=== PATIENT | female | born 1995 | race Caucasian/White ===

== ENCOUNTER → 2020-12-04 12:41 | Outpatient (CLI) | payer OTHER, SELFPAY ==
[2020-12-04 13:36] LABS: HCG Quantitative /Beta subunit 12236 mIU/mL
== END ==
PROVIDERS: PCP Nurse Practitioner Family; Referring Provider Family Medicine; Visit Provider Family Medicine
DX: Z34.90 Encounter for supervision of normal pregnancy, unspecified, unspecified trimester (principal)
CPT/HCPCS: 36415; 84702

== ENCOUNTER → 2020-12-06 11:47 | Outpatient (CLI) | payer OTHER, SELFPAY ==
[2020-12-06 15:19] LABS: HCG Quantitative /Beta subunit 10998 mIU/mL
== END ==
PROVIDERS: PCP Nurse Practitioner Family; Referring Provider Family Medicine; Visit Provider Family Medicine
DX: Z34.90 Encounter for supervision of normal pregnancy, unspecified, unspecified trimester (principal)
CPT/HCPCS: 36415; 84702

== ENCOUNTER 2020-12-06 18:45 | Emergency (ER) | payer OTHER, SELFPAY ==
[2020-12-06 19:20] VITALS: BP 140/88; PULSE 128; RESP 24; TEMP 36.2; O2SAT 99; BMI 38.2
--- NOTE | 2020-12-06 19:30 | DI.US.S_ITS ---
PROCEDURE: US PELVIC COMPLETE INDICATIONS: VAGINAL BLEEDING AND CRAMPING. Positive beta HCG. TECHNIQUE: Real-time scanning was performed of the pelvic organs, with image documentation. Additional endovaginal scanning was necessary due to incomplete visualization of the adnexal and endometrial structures by transabdominal scanning. COMPARISON: None. FINDINGS: Uterus: Uterus is normal in size at 8.7 x 4.8 x 4.2 cm. The endometrium measures 18.9 mm in combined thickness. Endometrium is heterogeneous. No gas station no sac or pole. Ovaries: Not visualized. Septations in the left adnexa. Other: Trace amount of pelvic fluid, likely within physiological limits. IMPRESSION: 1. Thickened endometrium measuring 18.9 mm. No gestation sac or pole. 2. Ovaries are not visualized. There are septations in the left adnexa. If clinically indicated, follow-up ultrasound is recommended. Dictated by: Reji Forrester M.D. on 12/06/2020 at 21:24 Approved by: Reji Forrester M.D. on 12/06/2020 at 21:28
--- NOTE | 2020-12-06 19:39 | ED_ITS ---
HPI - General Chief complaint: Vaginal Bleeding Stated complaint: 9 Wks Preg, Poss Miscarrige Time Seen by Provider: 12/06/20 19:13 Source: patient Mode of arrival: Ambulatory Limitations: no limitations History of Present Illness HPI Narrative: 25-year-old female at 9 weeks presents with a chief comp laint of cramping and heavy vaginal bleeding over the course of the day. She is not dizzy nor weak or lightheaded. She has had no fever or chills. Her OB has been following her with ultrasound and HCG has been trending down. She is here for evaluation of a likely miscarriage. She has been bleeding heavily, at times saturating a pad per hour and passing clots. There is no obvious tissue past Related Data Home Medications Medication Instructions Recorded Confirmed albuterol sulfate 90 mcg/actuation 1 inh INHALATION Q4-6H PRN 12/03/20 12/03/20 breath activated powder inhaler,sensor prenat.vits,mina,[id number] 1 tab PO DAILY 12/03/20 12/03/20 Allergies Allergy/AdvReac Type Severity Reaction Status Date / Time No Known Drug Allergies Allergy Verified 12/03/20 12:06 Review of Systems Review of Systems Narrative: GENERAL: See HPI. HEENT: Denies sinus pain, ear pain, sore throat, difficulty swallowing, dizziness. RESPIRATORY: Denies dyspnea, cough, wheezing, hemoptysis, sputum. CARDIOVASCULAR: Denies chest pain, palpitations, orthopnea, edema, GASTROINTESTINAL: Denies nausea, vomiting, abdominal pain, diarrhea, constipation, melena. : See HPI MUSCULOSKELETAL: denies weakness, joint pain, or bony pain SKIN: Denies rash, skin lesions, or other NEUROLOGIC: Denies weakness, headache, numbness, change in speech, confusion, seizures, incoordination. PSYCHIATRIC: No concerning psychosocial issues. 12 point review of systems is negative except for those stated above Exam Narrative Exam Narrative: GENERAL: [25] year old patient appears stated age. Well- developed patient, in mild distress. Tearful, sad HEAD: Atraumatic. Normocephalic. EYES: Pupils equal round and reactive. Extraocular motions intact. No scleral icterus. No injection or drainage. ENT: Nose without bleeding, purulent drainage. Throat without erythema, tonsillar hypertrophy or exudate. Airway patent. NECK: Trachea midline. Non tender CARDIOVASCULAR: Tachycardic but regular rhythm without murmurs, gallops, or rubs. RESPIRATORY: Clear to auscultation. Breath sounds equal bilaterally. No wheezes, rales, or rhonchi. GASTROINTESTINAL: Abdomen soft, non-tender, nondistended. : Moderate dark red blood from cervical os, no clots or tissue noted, laceration. Pelvic exam performed with patient's permission and female nursing power plant operators supervisor at the bedside EXTREMITIES: No edema or joint tenderness. BACK: Nontender without deformity or crepitance. No flank tenderness. NEURO: AOx3. SKIN: No rash or erythema of visible areas Initial Vital Signs Initial Vital Signs: Vital Signs Temperature 97.1 F L 12/06/20 19:20 Pulse Rate 128 H 12/06/20 19:20 Respiratory Rate 24 12/06/20 19:20 Blood Pressure 140/88 12/06/20 19:20 Pulse Oximetry 99 12/06/20 19:20 Course Course Course Narrative: Upon completion of physical exam I have was in contact with on-call crew manager, I have related to her the history and physical exam, as well as ultrasound findings. After our discussion patient would prefer to get a D&C a possible. Dr. Fuentes will see the patient at the bedside, please see her note for details of the visit. Orders Ordered: ED Orders 12/06/20 19:30 US pelvic complete Stat 12/06/20 19:35 Complete Blood Count AUTO DIFF Stat Comprehensive Metabolic Panel Stat HCG Quantitative /Beta subunit Stat Type and Screen Stat 12/06/20 20:30 COVID19 -Nasal swab/Pre-Proc Stat Discontinued Medications Misoprostol (Misoprostol 200 Mcg Tablet) 800 mcg VAG NOW ONE Stop: 12/06/20 22:22 Last Admin: 12/06/20 22:34 Dose: 800 mcg Documented by: AIYANA Morphine Sulfate (Morphine 2 Mg/Ml Inj) 2 mg IV NOW ONE Stop: 12/06/20 19:31 Last Admin: 12/06/20 19:44 Dose: 2 mg Documented by: MARIA DE JESUS Ondansetron HCl (Ondansetron 4 Mg/2 Ml Inj) 4 mg IV NOW ONE Stop: 12/06/20 19:31 Last Admin: 12/06/20 19:44 Dose: 4 mg Documented by: MARIA DE JESUS Consultations Consultation #1: Per Dr. fellows visit with patient they have elected not to perform D&C and will instead use Cytotec Vital Signs Vital signs: Vital Signs - 8 hr 12/06/20 19:20 12/06/20 19:49 12/06/20 20:00 Temperature 97.1 F L Pulse Rate 128 H 97 H 98 H Respiratory Rate 24 Blood Pressure 140/88 132/77 121/68 Pulse Oximetry 99 97 97 12/06/20 20:30 12/06/20 21:00 12/06/20 22:22 Temperature 98.7 F Pulse Rate 108 H 100 H 98 H Respiratory Rate Blood Pressure 115/66 Pulse Oximetry 97 98 96 MDM - OB/Uterine Contractions Lab Data Result diagrams: 12/06/20 19:35 12/06/20 19:35 Labs: Lab Results 12/06/20 12/06/20 12/06/20 Range/Units 19:35 19:35 19:35 WBC 10.3 (4.5-11.0) X10^3/uL RBC 4.78 (4.0-5.2) X10^6/uL Hgb 13.9 (12.0-16.0) g/dL Hct 40.9 (36-46) % MCV 85.4 (80-100) fL MCH 29.1 (26-34) PG MCHC 34.0 (30-36) % RDW 13.5 (11.6-14.8) % Plt Count 204 (150-400) X10^3/uL Neut % (Auto) 60.7 (50-75) % Lymph % (Auto) 29.5 (25-40) % [place] % (Auto) 6.1 (3-14) % Eos % (Auto) 2.8 (2-4) % Baso % (Auto) 0.9 (0-2) % Neut # (Auto) 6300 (8866-9780) /uL Lymph # (Auto) 3000 (4710-8637) /uL [place] # (Auto) 600 (0-900) /uL Eos # (Auto) 300 (0-450) /uL Baso # (Auto) 100 (0-100) /uL Sodium 138 (137-145) mmol/L Potassium 3.7 (3.4-5.1) mmol/L Chloride 102 (98-107) mmol/L Carbon Dioxide 27 (22-32) mmol/L BUN 11 (7-17) mg/dL Creatinine 0.58 (0.52-1.04) mg/dL Estimated GFR > 60.0 (>60) mL/min BUN/Creatinine Ratio 19.0 (6-22) Glucose 140 H (70-100) mg/dL Calcium 9.5 (8.4-10.2) mg/dL Total Bilirubin 0.3 (0.2-1.3) mg/dL AST 27 (14-36) IU/L ALT 33 (<35) IU/L Alkaline Phosphatase 60 (38-126) U/L Total Protein 7.6 (6.3-8.2) g/dL Albumin 4.3 (3.5-5.0) g/dL Globulin 3.3 (1.7-4.1) g/dL Albumin/Globulin Ratio 1.3 (1.0-2.8) HCG, Quant 9127.1 mIU/mL SARS-CoV-2 (PCR) (Negative) Blood Type O Positive Antibody Screen Negative 12/06/20 Range/Units 20:30 WBC (4.5-11.0) X10^3/uL RBC (4.0-5.2) X10^6/uL Hgb (12.0-16.0) g/dL Hct (36-46) % MCV (80-100) fL MCH (26-34) PG MCHC (30-36) % RDW (11.6-14.8) % Plt Count (150-400) X10^3/uL Neut % (Auto) (50-75) % Lymph % (Auto) (25-40) % [place] % (Auto) (3-14) % Eos % (Auto) (2-4) % Baso % (Auto) (0-2) % Neut # (Auto) (9898-6055) /uL Lymph # (Auto) (7999-1465) /uL [place] # (Auto) (0-900) /uL Eos # (Auto) (0-450) /uL Baso # (Auto) (0-100) /uL Sodium (137-145) mmol/L Potassium (3.4-5.1) mmol/L Chloride (98-107) mmol/L Carbon Dioxide (22-32) mmol/L BUN (7-17) mg/dL Creatinine (0.52-1.04) mg/dL Estimated GFR (>60) mL/min BUN/Creatinine Ratio (6-22) Glucose (70-100) mg/dL Calcium (8.4-10.2) mg/dL Total Bilirubin (0.2-1.3) mg/dL AST (14-36) IU/L ALT (<35) IU/L Alkaline Phosphatase (38-126) U/L Total Protein (6.3-8.2) g/dL Albumin (3.5-5.0) g/dL Globulin (1.7-4.1) g/dL Albumin/Globulin Ratio (1.0-2.8) HCG, Quant mIU/mL SARS-CoV-2 (PCR) Negative (Negative) Blood Type Antibody Screen Imaging Data US - [employer]: Radiologist's Impression: Dina Judge 25 F [address] [id number] ReportSigned Patient: Dina Judge MMR#: [id number]: 1995Acct:[id number]/Sex: 25 / FDate of Service: 12/06/20Loc: EDAccession Number: [id number] Procedure: US pelvic complete Ordering Provider: Tommy Iraheta D.O. PROCEDURE: US PELVIC COMPLETE INDICATIONS: VAGINAL BLEEDING AND CRAMPING. Positive beta HCG. TECHNIQUE: Real-time scanning was performed of the pelvic organs, with image documentation. Additional endovaginal scanning was necessary due to incomplete visualization of the adnexal and endometrial structures by transabdominal scanning. COMPARISON: None. FINDINGS: Uterus: Uterus is normal in size at 8.7 x 4.8 x 4.2 cm. The endometrium me asures 18.9 mm in combined thickness. Endometrium is heterogeneous. No gas station no sac or pole. Ovaries: Not visualized. Septations in the left adnexa. Other: Trace amount of pelvic fluid, likely within physiological limits. IMPRESSION: 1. Thickened endometrium measuring 18.9 mm. No gestation sac or pole. 2. Ovaries are not visualized. There are septations in the left adnexa. If clinically indicated, follow-up ultrasound is recommended. Dictated by: Reji Forrester M.D. on 12/06/2020 at 21:24 Approved by: Reji Forrester M.D. on 12/06/2020 at 21:28 MDM Narrative Medical decision making narrative: Patient with stable vitals and H&H. Likely a near complete miscarriage. After discussion with Ob patient will take Cytotec at home and follow closely. Return precautions have been given and questions answered to her apparent satisfaction Discharge Plan Departure Patient Disposition: Home Clinical Impression: Incomplete miscarriage Instructions: DI for Miscarriage Activity Restrictions/Additional Instructions: *You have been diagnosed with [ Near complete miscarriage.] *What to do: *Please take Cytotec vaginally as discussed with Dr. Green *Please follow up with your OB provider in 2-3 days, call for an appointment. Let them know you were seen in the Emergency Department and that we ask that you be seen in follow up. We will electronically transmit a record of today's note if your PCP is in our system *Return to Emergency Department if you should have any new, worsening or concerning symptoms, such as [fever greater than 101 F, shaking chills, worsening pain, persistent vomiting or other bothersome symptoms] Prescriptions: No Action prenat.vits,mina,[id number]-[id number] Tablet 1 tab PO DAILY RF: 0 albuterol sulfate 90 mcg/actuation aero powdr breath act w/sensor 1 inh inhalation Q4-6H PRNRF: 0 Referrals: Kaycee Green MD [Physician] - Anna Pelaez ARNP [Primary Care Provider] -
[2020-12-06] MEDS: MORPHINE 2 MG/ML INJ IV (19:44)
[2020-12-06] MEDS: ONDANSETRON 4 MG/2 ML INJ IV (19:44)
[2020-12-06 19:49] VITALS: BP 132/77; PULSE 97; O2SAT 97
[2020-12-06 19:56] LABS: Add Manual Diff / Slide Review NO; Basophils Absolute Auto 100 /uL (0-100); Basophils Percent Auto 0.9 % (0-2); Eosinophils Absolute Auto 300 /uL (0-450); Eosinophils Percent Auto 2.8 % (2-4); Hematocrit 40.9 % (36-46); Hemoglobin 13.9 g/dL (12.0-16.0); Lymphocytes Absolute Auto 3000 /uL (1100-4500); Lymphocytes Percent Auto 29.5 % (25-40); Mean Corpuscular Hemoglobin 29.1 PG (26-34); Mean Corpuscular Volume 85.4 fL (80-100); Monocytes Absolute Auto 600 /uL (0-900); Monocytes Percent Auto 6.1 % (3-14); Neutrophils Absolute Auto 6300 /uL (1500-7000); Neutrophils Percent Auto 60.7 % (50-75); Platelet Count 204 X10^3/uL (150-400); Red Blood Cell Count 4.78 X10^6/uL (4.0-5.2); Red Cell Distribution Width 13.5 % (11.6-14.8); White Blood Cell Count 10.3 X10^3/uL (4.5-11.0)
[2020-12-06 20:00] VITALS: BP 121/68; PULSE 98; O2SAT 97
[2020-12-06 20:05] LABS: Alanine Aminotransferase 33 IU/L (<35); Albumin 4.3 g/dL (3.5-5.0); Albumin Globulin Ratio 1.3 (1.0-2.8); Alkaline Phosphatase 60 U/L (38-126); Aspartate Aminotransferase 27 IU/L (14-36); Bilirubin Total 0.3 mg/dL (0.2-1.3); Blood Urea Nitrogen 11 mg/dL (7-17); Calcium 9.5 mg/dL (8.4-10.2); Carbon Dioxide 27 mmol/L (22-32); Chloride 102 mmol/L (98-107); Estimated Glomerular Filt Rate > 60.0 mL/min (>60); Globulin 3.3 g/dL (1.7-4.1); Glucose 140 mg/dL (70-100); HEMOLYSIS < 15 (0-50); Potassium 3.7 mmol/L (3.4-5.1); Sodium 138 mmol/L (137-145); Total Protein 7.6 g/dL (6.3-8.2)
[2020-12-06 20:21] LABS: HCG Quantitative /Beta subunit 9127.1 mIU/mL
[2020-12-06 20:30] VITALS: PULSE 108; O2SAT 97
[2020-12-06 21:00] VITALS: PULSE 100; O2SAT 98
[2020-12-06 21:15] LABS: COVID19 -Nasal RAPID Negative (Negative)
--- NOTE | 2020-12-06 22:09 | PM.GYNHP.1 ---
History of Present Illness History of Present Illness Reason for admission: vaginal bleeding Narrative: Dina Judge is a 25 year old @9 weeks by certain LMP with a desired and regular menses, 6+2 by TVUS on 12/04, presenting with a miscarriage in progress. The patient reports that this was a planned with known dating, but that her new OB visit as an outpatient, an intrauterine pole was visualized with no FHR. Serial HCGs that day and today showed a decreasing HCG, and the patient reports that at 5:30 PM, she began having severe cramping and passing large clots. The pain and bleeding have decreased somewhat, though her bleeding is now consistent with a heavy period. A TVUS in the emergency department shows a thickened endometrium but no definite POCs. The patient denies fevers, chills, nausea, vomiting, BELL, anemia symptoms, or any other symptoms. 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 She denies any contributory social history, and is accompanied by her supportive spouse. [facility] Medical History Anxiety Asthma Back pain Bronchitis Depression Frequent headaches Heat rash Hormone imbalance Obesity Tongue tied Surgical History H/O tooth extraction Family History Father Drug addict Acute alcohol abuse Family estrangement Nephrotic syndrome Mother PCOS (polycystic ovarian syndrome) Depression Anxiety Grandfather Family estrangement Grandmother Family estrangement Grandfather History of prediabetes Obesity Grandmother Gestational diabetes Anemia Seizures Depression Anxiety Sister Anemia induced hypertension Sister No problems noted. Brother No problems noted. Brother No problems noted. Family/Other Crohn's disease Social History marital status: number of children: 0 household members: spouse lives independently: Yes pets and animals: Yes (X 2 dogs) education level: college (X 2 year Degree, some classses towards BA (Organizational Leadership)) occupational status: employed ([employer] : works from home most days) current occupational exposures/hazards: No angelica/orthodoxy: Buddhist special angelica needs: No Smoking Status: Never smoker second hand exposure: No alcohol intake: former (pre- : very rare) substance use type: does not use Type(s) of exercise: occasional exercise (H/O : walking and swimming ) Meds Home Medications and Allergies Home Medications Medication Instructions Recorded Confirmed Type albuterol sulfate 90 mcg/actuation 1 inh INHALATION Q4-6H PRN 12/03/20 12/03/20 History breath activated powder inhaler,sensor prenat.vits,mina,[id number] 1 tab PO DAILY 12/03/20 12/03/20 History Allergies Allergy/AdvReac Type Severity Reaction Status Date / Time No Known Drug Allergies Allergy Verified 12/03/20 12:06 Review of Systems Constitutional Constitutional: Reports as per HPI Cardiovascular Cardiovascular: Reports system reviewed and no additional complaints, except as documented Respiratory Respiratory: Reports system reviewed and no additional complaints, except as documented Gastrointestinal Gastrointestinal: Reports as per HPI Genitourinary Genitourinary: Reports as per HPI Exam Vital Signs (past 8 hours): - 12/06/20 19:20 12/06/20 19:49 12/06/20 20:00 Temperature 97.1 F L Pulse Rate 128 H 97 H 98 H Respiratory Rate 24 Blood Pressure 140/88 132/77 121/68 Pulse Oximetry 99 97 97 12/06/20 20:30 12/06/20 21:00 Temperature Pulse Rate 108 H 100 H Respiratory Rate Blood Pressure Pulse Oximetry 97 98 Oxygen Delivery Method Room Air Const General: cooperative, comfortable and in distress (appropriately distressed) Orientation: alert, awake and oriented x3 GI Palpation: soft and tender (mild fundal tenderness) External Female Exam: normal external appearance Speculum Exam - Vagina: no lacerations, no lesions and vaginal bleeding Speculum Exam - Cervix: cervical os open OB/External & Speculum: cervical os open and vaginal bleeding Other: 1 scopette dark red blood cleared with slow ongoing bleeding from open appearing cervical os. Bimanual exam deferred due to limited utility due to body habitus vs. increased risk of infection. Objective Labs Result Diagrams: 12/06/20 19:35 12/06/20 19:35 Labs: Laboratory Results - last 24 hr 12/06/20 12/06/20 12/06/20 19:35 19:35 19:35 WBC 10.3 RBC 4.78 Hgb 13.9 Hct 40.9 MCV 85.4 MCH 29.1 MCHC 34.0 RDW 13.5 Plt Count 204 Neut % (Auto) 60.7 Lymph % (Auto) 29.5 [place] % (Auto) 6.1 Eos % (Auto) 2.8 Baso % (Auto) 0.9 Neut # (Auto) 6300 Lymph # (Auto) 3000 [place] # (Auto) 600 Eos # (Auto) 300 Baso # (Auto) 100 Sodium 138 Potassium 3.7 Chloride 102 Carbon Dioxide 27 BUN 11 Creatinine 0.58 Estimated GFR > 60.0 BUN/Creatinine Ratio 19.0 Glucose 140 H Calcium 9.5 Total Bilirubin 0.3 AST 27 ALT 33 Alkaline Phosphatase 60 Total Protein 7.6 Albumin 4.3 Globulin 3.3 Albumin/Globulin Ratio 1.3 HCG, Quant 9127.1 SARS-CoV-2 (PCR) Blood Type O Positive Antibody Screen Negative 12/06/20 20:30 WBC RBC Hgb Hct MCV MCH MCHC RDW Plt Count Neut % (Auto) Lymph % (Auto) [place] % (Auto) Eos % (Auto) Baso % (Auto) Neut # (Auto) Lymph # (Auto) [place] # (Auto) Eos # (Auto) Baso # (Auto) Sodium Potassium Chloride Carbon Dioxide BUN Creatinine Estimated GFR BUN/Creatinine Ratio Glucose Calcium Total Bilirubin AST ALT Alkaline Phosphatase Total Protein Albumin Globulin Albumin/Globulin Ratio HCG, Quant SARS-CoV-2 (PCR) Negative Blood Type Antibody Screen
[2020-12-06 22:22] VITALS: BP 115/66; PULSE 98; TEMP 37.1; O2SAT 96
--- NOTE | 2020-12-06 22:31 | PM.CN ---
History of Present Illness Consult details Date Patient Seen: 12/06/20 Time Patient Seen: 22:00 Chief complaint: 9 Wks Preg, Poss Miscarrige Reason for consult: complete Requesting provider: Tommy Iraheta Narrative: Dina Judge is a 25 year old @9 weeks by certain LMP with a desired and regular menses, 6+2 by TVUS on 12/04, presenting with a miscarriage in progress. The patient reports that this was a planned with known dating, but that her new OB visit as an outpatient, an intrauterine pole was visualized with no FHR. Serial HCGs that day and today showed a decreasing HCG, and the patient reports that at 5:30 PM, she began having severe cramping and passing large clots. The pain and bleeding have decreased somewhat, though her bleeding is now consistent with a heavy period. A TVUS in the emergency department shows a thickened endometrium but no definite POCs. The patient denies fevers, chills, nausea, vomiting, BELL, anemia symptoms, or any other symptoms. 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 She denies any contributory social history, and is accompanied by her supportive spouse. Meds Home Medications and Allergies Home Medications Medication Instructions Recorded Confirmed Type albuterol sulfate 90 mcg/actuation 1 inh INHALATION Q4-6H PRN 12/03/20 12/03/20 History breath activated powder inhaler,sensor prenat.vits,mina,[id number] 1 tab PO DAILY 12/03/20 12/03/20 History Allergies Allergy/AdvReac Type Severity Reaction Status Date / Time No Known Drug Allergies Allergy Verified 12/03/20 12:06 Review of Systems Constitutional Constitutional: Reports system reviewed and no additional complaints, except as documented Cardiovascular Cardiovascular: Reports system reviewed and no additional complaints, except as documented Respiratory Respiratory: Reports system reviewed and no additional complaints, except as documented Gastrointestinal Gastrointestinal: Reports as per HPI Genitourinary Genitourinary: Reports as per HPI Musculoskeletal Musculoskeletal: Reports system reviewed and no additional complaints, except as documented Neurologic Neurologic: Reports system reviewed and no additional complaints, except as documented Exam Vital Signs (past 8 hours): - 12/06/20 19:20 12/06/20 19:49 12/06/20 20:00 Temperature 97.1 F L Pulse Rate 128 H 97 H 98 H Respiratory Rate 24 Blood Pressure 140/88 132/77 121/68 Pulse Oximetry 99 97 97 12/06/20 20:30 12/06/20 21:00 12/06/20 22:22 Temperature 98.7 F Pulse Rate 108 H 100 H 98 H Respiratory Rate Blood Pressure 115/66 Pulse Oximetry 97 98 96 Oxygen Delivery Method Room Air Const General: cooperative, healthy appearing, well groomed and in distress (appropriately saddened, accompanied by spouse) GI Palpation: soft and tender (mild, suprapubic) External Female Exam: normal external appearance Speculum Exam - Vagina: normal appearance of the vagina, not erythematous, no foreign bodies, no lesions and vaginal bleeding Speculum Exam - Cervix: cervical os open (5mm) OB/External & Speculum: no foreign bodies, cervical os open (5mm) and vaginal bleeding Other: On sterile speculum exam, scant ongoing old dark blood from os. 1 scopette old blood cleared from vaginal vault, no tissue visualized. Given US and rest of exam, bimanual exam deferred as limited utility due to body habitus and concern for increased risk of infection. Objective Labs Result Diagrams: 12/06/20 19:35 12/06/20 19:35 Labs: Laboratory Results - last 24 hr 12/06/20 12/06/20 12/06/20 19:35 19:35 19:35 WBC 10.3 RBC 4.78 Hgb 13.9 Hct 40.9 MCV 85.4 MCH 29.1 MCHC 34.0 RDW 13.5 Plt Count 204 Neut % (Auto) 60.7 Lymph % (Auto) 29.5 [place] % (Auto) 6.1 Eos % (Auto) 2.8 Baso % (Auto) 0.9 Neut # (Auto) 6300 Lymph # (Auto) 3000 [place] # (Auto) 600 Eos # (Auto) 300 Baso # (Auto) 100 Sodium 138 Potassium 3.7 Chloride 102 Carbon Dioxide 27 BUN 11 Creatinine 0.58 Estimated GFR > 60.0 BUN/Creatinine Ratio 19.0 Glucose 140 H Calcium 9.5 Total Bilirubin 0.3 AST 27 ALT 33 Alkaline Phosphatase 60 Total Protein 7.6 Albumin 4.3 Globulin 3.3 Albumin/Globulin Ratio 1.3 HCG, Quant 9127.1 SARS-CoV-2 (PCR) Blood Type O Positive Antibody Screen Negative 12/06/20 20:30 WBC RBC Hgb Hct MCV MCH MCHC RDW Plt Count Neut % (Auto) Lymph % (Auto) [place] % (Auto) Eos % (Auto) Baso % (Auto) Neut # (Auto) Lymph # (Auto) [place] # (Auto) Eos # (Auto) Baso # (Auto) Sodium Potassium Chloride Carbon Dioxide BUN Creatinine Estimated GFR BUN/Creatinine Ratio Glucose Calcium Total Bilirubin AST ALT Alkaline Phosphatase Total Protein Albumin Globulin Albumin/Globulin Ratio HCG, Quant SARS-CoV-2 (PCR) Negative Blood Type Antibody Screen Assessment & Plan Assessment and plan (1) Incomplete miscarriage: Problem details: This patient presents to the Emergency Department for what appears to now be a nearly complete miscarriage. The patient passed several large clots with severe cramping, and though she continues to have moderate bleeding and cramping, her symptoms have significantly improved. I discussed the significance of her improved symptoms and the ultrasound findings with the patient and her spouse. We discussed the options of dilation and curettage, medical management with misoprostol, and expectant management. We discussed that based on her ultrasound, the bulk of the products of conception appear to have passed, and that she could expect ongoing bleeding and cramping tapering off for the next 2-3 weeks. We discussed that 800mcg misoprostol induces cramping of the uterus that encourages passage of remaining POCs and clot, and that she can expect heavy cramping and heavier bleeding for approximately 12 hours after the dose is administered with a small chance of still needing a dilation and curettage for retained products of conception. We discussed that a dilation and curettage more definitively removes the products of conception, but that risks of the procedure are infection, hemorrhage, uterine perforation with damage to surrounding organs, and a small risk of Asherman's syndrome. We discussed that a D&C would not cause bleeding to cease, and that she would still have approximately 2 weeks of decreasing bleeding, though likely rehab director occupational therapist than with the other two options. The patient vocalized understanding of all of the above, and after discussion with her spouse, opted to proceed with 800mcg vaginal misoprostol. We discussed precautions including return to the Emergency Department if soaking more than 2 pads/hour for two hours, infection precautions, and acute blood loss anemia precautions. We discussed the possible need for a repeat dose, and the importance of close outpatient followup within the week. The patient was encouraged to call with any questions or symptoms at any time, or to return to the Emergency Department if necessary. Status: Acute
[2020-12-06] MEDS: miSOPROStoL 200 MCG TABLET 800 MCG VAG (22:34)
== END 2020-12-06 23:03 | disposition home or self-care (01) ==
PROVIDERS: Emergency Provider Emergency Medicine; PCP Nurse Practitioner Family
DX: O03.4 Incomplete spontaneous abortion without complication (principal); Z20.822 Contact with and (suspected) exposure to COVID-19
CPT/HCPCS: 36415; 76830; 76856; 80053; 84702; 85025; 86850; 86900; 86901; 87635; 96374; 96375; 99284; C9803; J2270; J2405; S0191

== ENCOUNTER → 2020-12-13 13:34 | Outpatient (CLI) | payer OTHER, SELFPAY ==
[2020-12-13 15:06] LABS: HCG Quantitative /Beta subunit 176.8 mIU/mL
== END ==
PROVIDERS: PCP Nurse Practitioner Family; Referring Provider Family Medicine; Visit Provider Family Medicine
DX: Z34.90 Encounter for supervision of normal pregnancy, unspecified, unspecified trimester (principal)
CPT/HCPCS: 36415; 84702

== ENCOUNTER → 2020-12-27 16:03 | Outpatient (CLI) | payer OTHER, SELFPAY ==
[2020-12-27 17:55] LABS: Hemoglobin A1C% w Est Avg Glu 5.1 % (4.0-6.0)
[2020-12-27 18:19] LABS: HCG Quantitative /Beta subunit < 2.4 mIU/mL
== END ==
PROVIDERS: PCP Nurse Practitioner Family; Referring Provider Family Medicine; Visit Provider Family Medicine
DX: O03.4 Incomplete spontaneous abortion without complication (principal)
CPT/HCPCS: 36415; 83036; 84702

== ENCOUNTER → 2021-02-09 09:08 | Outpatient (CLI) | payer OTHER, SELFPAY ==
[2021-02-09 11:20] LABS: TSH w/ Reflex to FT4 2.86 uIU/mL (0.47-4.68)
[2021-02-09 12:54] LABS: Estradiol, Total 36.6 pg/mL
[2021-02-14 07:33] LABS: Percent Free Testosterone 3.07 % (0.50-2.80); Testosterone Free 1.06 ng/dL (0.10-0.85); Testosterone Total 34.4 ng/dL (10.0-55.0)
[2021-02-14 19:20] LABS: Estrogen 182 pg/mL (.)
== END ==
PROVIDERS: Referring Provider Family Medicine; Visit Provider Family Medicine
DX: E28.2 Polycystic ovarian syndrome (principal)
CPT/HCPCS: 36415; 82670; 82672; 83525; 84402; 84403; 84443

== ENCOUNTER → 2021-06-25 15:24 | Outpatient (CLI) | payer OTHER, SELFPAY ==
[2021-06-25 16:28] LABS: Hemoglobin A1C% w Est Avg Glu 5.2 % (4.0-6.0)
[2021-06-26 07:36] LABS: Insulin Level Total 70.8 uIU/mL (2.6-24.9)
[2021-06-28 14:48] LABS: Testosterone Free 1.79
[2021-06-28 15:25] LABS: Percent Free Testosterone 3.39 % (0.50-2.80); Testosterone Total 52.8 ng/dL (10.0-55.0)
== END ==
PROVIDERS: PCP Family Medicine; Referring Provider Family Medicine; Visit Provider Family Medicine
DX: E28.2 Polycystic ovarian syndrome (principal)
CPT/HCPCS: 36415; 83036; 83525; 84402; 84403

== ENCOUNTER → 2021-07-16 14:08 | Outpatient (CLI) | payer OTHER, SELFPAY ==
[2021-07-17 09:33] LABS: Fecal Immunochemical Test Negative (Negative)
== END ==
PROVIDERS: PCP Family Medicine; Referring Provider Physician Assistant; Visit Provider Physician Assistant
DX: R19.4 Change in bowel habit (principal); K92.1 Melena
CPT/HCPCS: 82274

== ENCOUNTER → 2022-03-19 09:57 | Outpatient (CLI) | payer OTHER, SELFPAY ==
[2022-03-19 10:54] LABS: Appearance Urine UA CLOUDY; Bilirubin Urine UA NEGATIVE (NEGATIVE); Color Urine UA YELLOW; Glucose Urine UA NEGATIVE (Negative); Ketones Urine UA NEGATIVE (NEGATIVE); Leukocyte Esterase Urine UA 3+ (NEGATIVE); Nitrite Urine UA NEGATIVE (Negative); Occult Blood Urine UA NEGATIVE (Negative); Protein Urine UA NEGATIVE (Negative); Urobilinogen Urine UA 0.2 E.U./dL (0.2)
[2022-03-19 11:04] LABS: Amorphous Sediment Urine 3+; Bacteria Urine Moderate (10-30); RBC Urine None Seen (0-5/HPF); Squamous Epithelial Cell Urine 1-5 /HPF (0-5/HPF); WBC Urine 1-5/HPF (0-5/HPF)
[2022-03-19 11:39] LABS: Add Manual Diff / Slide Review NO; Basophils Absolute Auto 0 /uL (0-100); Basophils Percent Auto 0.2 % (0-2); Eosinophils Absolute Auto 100 /uL (0-450); Eosinophils Percent Auto 1.7 % (2-4); Hematocrit 35.7 % (36-46); Hemoglobin 12.4 g/dL (12.0-16.0); Lymphocytes Absolute Auto 1600 /uL (1100-4500); Mean Corpuscular HGB Conc 34.8 % (30-36); Mean Corpuscular Hemoglobin 29.3 PG (26-34); Mean Corpuscular Volume 84.4 fL (80-100); Monocytes Absolute Auto 300 /uL (0-900); Neutrophils Absolute Auto 6500 /uL (1500-7000); Neutrophils Percent Auto 75.1 % (50-75); Platelet Count 238 X10^3/uL (150-400); Red Blood Cell Count 4.23 X10^6/uL (4.0-5.2); Red Cell Distribution Width 14.6 % (11.6-14.8); White Blood Cell Count 8.7 X10^3/uL (4.5-11.0)
[2022-03-19 11:57] LABS: GTT (PREG) 1 Hour PP 50gm Dose 162 mg/dL (76-139)
[2022-03-20 06:17] LABS: RPR Screen Non Reactive (Non Reactive)
[2022-03-20 08:45] LABS: Varicella IgG Antibody 333 index (Immune >165)
[2022-03-20 16:35] LABS: HIV 1 & 2 Ab/Ag 4th Gen Combo NEGATIVE (NEGATIVE); Hep C Virus Ab w/Reflex Quant NEGATIVE s/c (NEGATIVE); Hepatitis B Surface Antigen NEGATIVE s/c (NEGATIVE)
== END ==
PROVIDERS: PCP Family Medicine; Referring Provider Family Medicine; Visit Provider Family Medicine
DX: Z34.81 Encounter for supervision of other normal pregnancy, first trimester (principal); E28.2 Polycystic ovarian syndrome
CPT/HCPCS: 36415; 80055; 81003; 81015; 82950; 86787; 86803; 86850; 86900; 86901; 87086; 87389

== ENCOUNTER → 2022-04-11 15:09 | Outpatient (CLI) | payer OTHER, SELFPAY ==
--- NOTE | 2022-04-11 15:09 | DI.US.S_ITS ---
PROCEDURE: US OB >= 14 WEEKS FETUS INDICATIONS: Anatomy Scan OUTSIDE/PRIOR DATING DATA: Last menstrual period (LMP): 12/01/2021. LMP-based estimated date of delivery (SPENSER): 08/29/2022. First dating scan (date and location): 04/11/2022. Estimated date of delivery (SPENSER) from first dating scan: 08/19/2022. TECHNIQUE: Real-time scanning was performed of the fetus, with image documentation and biometric measurements. Endovaginal scanning: Non COMPARISON: None. FINDINGS: General: A single living intrauterine gestation is present. Presentation: Transverse. Placenta: Placental position is posterior. Placental edge is 1.1 cm from the internal os. Amniotic fluid index: 17 cm, normal range is 5-24 cm. Single deepest vertical pocket is 5.2 cm. heart rate: 133 beats per minute. Maternal cervical canal: 5.4 cm long. Normal lower limit is 2.5 cm. biometrics: Biparietal diameter: 4.9 cm, 20 week 6 day Head circumference: 19.2 cm, 21 week 3 day Abdominal circumference: 16.2 cm, 21 week 2 day Femur length: 3.7 cm, 21 week 6 day Clinically estimated gestational age: 20 week 0 day Composite gestational age from present scan: 21 week 3 day Estimated weight and percentile: 431 g, 99th percentile Anatomic survey: Neuro: Ventricles are non-dilated at less than 10 mm. Cisterna magna is normal at 3-11 mm. Cerebellum is normal in size and morphology. Nuchal skin fold: Normal at less than 6 mm between 14-21 weeks gestational age. Face: Nose and lips, facial profile are normal. Spine: No evidence for spina bifida. Heart: 4-chambered heart is present, with normal ventricular outflow tracts. Diaphragm: Diaphragm is intact. Stomach: Left-sided stomach is present. Kidneys: No hydronephrosis. Normal is less than 5 mm in 2nd trimester, less than 7 mm in 3rd trimester. Cord: 3-vessel cord has orthotopic insertion. Bladder: Normal in size. Extremities: All 4 extremities identified. IMPRESSION: Single live intrauterine consistent with a 21 week 3 day gestation by current ultrasound. Estimated weight, 431 g, 99th percentile. Low lying placenta. Placental edge is 1.1 cm from the internal os Approved by: Andrew Jacobo M.D. on 04/11/2022 at 18:00
== END ==
PROVIDERS: PCP Family Medicine; Referring Provider Family Medicine; Visit Provider Family Medicine
DX: Z34.92 Encounter for supervision of normal pregnancy, unspecified, second trimester (principal); Z3A.21 21 weeks gestation of pregnancy
CPT/HCPCS: 76811

== ENCOUNTER → 2022-05-12 15:43 | Outpatient (CLI) | payer OTHER, SELFPAY ==
--- NOTE | 2022-05-12 15:44 | DI.US.S_ITS ---
PROCEDURE: US OB FOLLOW UP INDICATIONS: low lying placenta OUTSIDE/PRIOR DATING DATA: Last menstrual period (LMP): 12/01/2021 LMP-based estimated date of delivery (SPENSER): 09/08/2022 First dating scan (date and location): 04/11/2022 Estimated date of delivery (SPENSER) from first dating scan: 08/19/2022 The calculations are made using the ultrasound SPENSER of 08/19/2022 TECHNIQUE: Real-time scanning was performed of the fetus, with image documentation and biometric measurements. Endovaginal scanning: Performed for better visualization of the cervix. COMPARISON: [facility], US, US OB >= 14 WEEKS FETUS, 04/11/2022, 15:17. FINDINGS: General: A single living intrauterine gestation is present. Presentation: Vertex Placenta: Placental position is posterior, without previa. Amniotic fluid index: 17.2 cm, normal range is 5-24 cm. Single deepest vertical pocket is 5.3 cm. heart rate: 158 beats per minute. Maternal cervical canal: Partially funneled appearance of the internal cervical os. Fundal portion measures approximately 1.5 cm in length by 1.1 cm in width. Closed portion of the cervix measures 2.6 cm in length. biometrics: Biparietal diameter: 6.4 cm, 25 weeks 6 days Head circumference: 23.7 cm, 25 weeks 5 days Abdominal circumference: 21.4 cm, 25 weeks 6 days Femur length: 4.7 cm, 25 weeks 4 days Clinically estimated gestational age: 25 weeks 6 days Composite gestational age from present scan: 25 weeks 5 days Estimated weight and percentile: 848 grams, 34th percentile for gestational age Other: Single nuchal cord is noted. IMPRESSION: 1. Single live intrauterine with appropriate interval growth. 2. Partial wedge-shaped funneling of the internal cervical os. Closed portion of the cervix measures 2.6 cm. 3. Interval resolution of low lying placenta. Concordant preliminary were conveyed to Dr. Garcia by the excellence coach immediately following the exam. Patient was sent to labor and delivery for further evaluation. We strive to produce accurate, complete, and clear reports of imaging services. To assist us in improving patient care, this report was composed using standard report templates and voice recognition software. Therefore, it may contain abnormal punctuation, insertions and/or omissions. Occasional wrong-word or sound-alike substitutions may occur. Though we review the report and make efforts to correct it, we do recommend that the report be read carefully in proper context to recognize any text inaccuracies. Approved by: Dada Sampson M.D. on 05/12/2022 at 17:05
== END ==
PROVIDERS: PCP Family Medicine; Referring Provider Family Medicine; Visit Provider Family Medicine
DX: O44.42 Low lying placenta NOS or without hemorrhage, second trimester (principal)
CPT/HCPCS: 76816; 76817

== ENCOUNTER 2022-05-12 16:43 | Outpatient (CLI) | payer OTHER, SELFPAY ==
--- NOTE | 2022-05-12 17:36 | PM.OBTRLD ---
Visit Information Visit Information Date of evaluation: 05/12/22 Primary OB Provider: Jennifer Ernandez Reason for Evaluation: Yes other Comments/Additional reasons for admission: Pt is a 26yo at 24w3d here due to possible cervical incompetence. Pt noted to have cervical funneling on f/u u/s for marginal previa, with cervical length of 2.6. The pt denies any vaginal bleeding, contractions/cramping, dysuria, abnormal vaginal discharge. She has overall been feeling well. [facility] Medical History Anxiety Asthma Back pain Bronchitis Depression Frequent headaches Heat rash Hormone imbalance Incomplete miscarriage Obesity Tongue tied Surgical History H/O tooth extraction Family History Father Drug addict Acute alcohol abuse Family estrangement Nephrotic syndrome Mother PCOS (polycystic ovarian syndrome) Depression Anxiety Grandfather Family estrangement Grandmother Family estrangement Grandfather History of prediabetes Obesity Grandmother Gestational diabetes Anemia Seizures Depression Anxiety Sister Anemia induced hypertension Sister No problems noted. Brother No problems noted. Brother No problems noted. 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/hoahaoism: [employer] special angelica needs: No travel history: recent (domestic only) seatbelt use: always water heater temp set < 120 deg: Yes working smoke detector in home: Yes fire extinguisher in home: Yes carbon monox detector in home: Yes firearms in home: Yes firearms unloaded and locked: Yes do you feel safe at home: Yes Smoking Status: Never smoker second hand exposure: No alcohol intake: former (only occasionally when not ) substance use type: does not use during the past year weight has: remained stable well-balanced diet: daily or most days daily servings fruits/ve-4 caffeine: Yes Type(s) of exercise: walking, bicycling (stationary bike) and weight lifting frequency: 3-4 times per week Evaluation Evaluation Baseline heart rate: 150 Variability: Moderate (11-25) monitor accelerations: Present Monitor Decelerations: Absent Category of Tracing: Reactive Diagnosis, Plan/Disposition Final Diagnosis (1) 24 weeks gestation of : Status: Acute (2) Cervical funneling: Status: Acute Plan/Disposition Plan: Pt is a 26yo at 24w3d here due to possible cervical incompetence and cervical funneling on ultrasound. Discussed with Dr Balderrama, [facility]. Recommended evaluation for pelvic infection and u/a - sent today. Repeat cervical length in 1 week, with referral to the [facility] vs hospitalization if worsening. Does not recommend betamethasone at this time, or tocolytics as pt without any contractions. Does not strongly recommend vaginal progesterone at this time. Recommends pelvic rest and restful activity level at home. Discussed this with the patient in detail today. The pt expressed understanding. OB Disposition: home
[2022-05-12 19:21] LABS: Strep Grp B PCR POS for Grp B Strep
[2022-05-12 20:07] LABS: Urine N gonorrhoeae NOT DETECTED
[2022-05-12 20:42] LABS: Urine Chlamydia NOT DETECTED
== END 2022-05-12 18:00 | disposition home or self-care (01) ==
LOC: OB 05-15 12:32
PROVIDERS: PCP Family Medicine; Referring Provider Family Medicine; Visit Provider Family Medicine
DX: O34.32 Maternal care for cervical incompetence, second trimester (principal); Z3A.24 24 weeks gestation of pregnancy; O44.42 Low lying placenta NOS or without hemorrhage, second trimester; Z3A.25 25 weeks gestation of pregnancy
CPT/HCPCS: 59025; 59050; 76816; 76817; 87210; 87491; 87591; 87653; G0378; G0379

== ENCOUNTER 2022-05-18 07:12 | Emergency (ER) | payer OTHER, SELFPAY ==
--- NOTE | 2022-05-18 07:17 | ED_ITS ---
HPI - General Adult General Chief complaint: Skin/Abscess/Foreign Body Stated complaint: CYST ON LOWER GLUTEUS ALEKSEY LT. SIDE Time Seen by Provider: 05/18/22 07:16 History of Present Illness HPI narrative: 26-year-old female nonsmoker, 27 weeks presents with in the [facility] complaint of a painful lump on her left buttock. She states she 1st noticed it a few days ago and it seems to be worsening. She denies any fever or chills nor nausea or vomiting. She has been on bed rest because of a shortened cervix but denies any vaginal bleeding, discharge or leakage of fluid. She denies any pain with bowel movements. She has been trying warm compresses. Related Data Home Medications Medication Instructions Recorded Confirmed prenat.vits,mina,[id number] 1 tab PO DAILY 12/03/20 05/09/22 Previous Rx's Medication Instructions Recorded sertraline 50 mg tablet 50 mg PO DAILY #180 tabs 12/23/21 ondansetron 4 mg disintegrating 4 mg PO Q8H PRN nausea and 01/30/22 tablet vomiting #30 tabs albuterol sulfate 1.25 mg/3 mL 1.25 mg (3 mL) inhalation Q4-6H 02/07/22 solution for nebulization PRN shortness of breath or wheezing #75 mL nebulizer accessories ([place] #1 ea 02/09/22 Choice Nebulizer Kit-Adult) vios nebulizer kit #1 ea 02/10/22 promethazine 25 mg tablet 25 mg PO Q6H PRN nausea and 02/19/22 vomiting #30 tabs Test strips #1 ea 03/26/22 famotidine 20 mg tablet 20 mg PO BID #60 tabs 04/01/22 freestyle light glucometer #1 ea 04/01/22 lancets #270 ea 04/01/22 albuterol sulfate 90 mcg/actuation 1 inh inhalation Q4-6H PRN 05/14/22 breath activated powder shortness of breath or wheezing #1 inhaler,sensor ea frestyle lite test strips #270 ea 05/14/22 clindamycin HCl 300 mg capsule 300 mg PO Q8H 7 days #21 caps 05/18/22 Allergies Allergy/AdvReac Type Severity Reaction Status Date / Time No Known Drug Allergies Allergy Verified 05/09/22 10:38 Review of Systems Review of Systems Narrative: GENERAL: Denies chills, fatigue, malaise, fever, sweats. HEENT: Denies sinus pain, ear pain, sore throat, difficulty swallowing, dizziness. RESPIRATORY: Denies dyspnea, cough, wheezing, hemoptysis, sputum. CARDIOVASCULAR: Denies chest pain, palpitations, orthopnea, edema, GASTROINTESTINAL: Denies nausea, vomiting, abdominal pain, diarrhea, constipation, melena. : Denies dysuria, frequency, incontinence, hematuria, urinary retention. MUSCULOSKELETAL: denies weakness, joint pain, or bony pain SKIN: See HPI NEUROLOGIC: Denies weakness, headache, numbness, change in speech, confusion, seizures, incoordination. PSYCHIATRIC: No concerning psychosocial issues. 12 point review of systems is negative except for those stated above Patient History Medical History Anxiety Asthma Back pain Bronchitis Depression Frequent headaches Heat rash Hormone imbalance Incomplete miscarriage Obesity Tongue tied Surgical History H/O tooth extraction Family History Father Drug addict Acute alcohol abuse Family estrangement Nephrotic syndrome Mother PCOS (polycystic ovarian syndrome) Depression Anxiety Grandfather Family estrangement Grandmother Family estrangement Grandfather History of prediabetes Obesity Grandmother Gestational diabetes Anemia Seizures Depression Anxiety Sister Anemia induced hypertension Sister No problems noted. Brother No problems noted. Brother No problems noted. 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/methodist: [employer] special angelica needs: No travel history: recent (domestic only) seatbelt use: always water heater temp set < 120 deg: Yes working smoke detector in home: Yes fire extinguisher in home: Yes carbon monox detector in home: Yes firearms in home: Yes firearms unloaded and locked: Yes do you feel safe at home: Yes Smoking Status: Never smoker second hand exposure: No alcohol intake: former (only occasionally when not ) substance use type: does not use during the past year weight has: remained stable well-balanced diet: daily or most days daily servings fruits/ve-4 caffeine: Yes Type(s) of exercise: walking, bicycling (stationary bike) and weight lifting frequency: 3-4 times per week Smoking Status: Never smoker alcohol intake frequency: 0-2 drinks per day Substance Use Type: does not use Exam Narrative Exam Narrative: GENERAL: [26] year old patient appears stated age. Well-developed patient, in mild distress. Complaining of pain HEAD: Atraumatic. Normocephalic. EYES: Pupils equal round and reactive. Extraocular motions intact. No scleral icterus. No injection or drainage. ENT: Nose without bleeding, purulent drainage. Throat without erythema, tonsillar hypertrophy or exudate. Airway patent. NECK: Trachea midline. Non tender CARDIOVASCULAR: Regular rate and rhythm without murmurs, gallops, or rubs. RESPIRATORY: Clear to auscultation. Breath sounds equal bilaterally. No wheezes, rales, or rhonchi. GASTROINTESTINAL: Abdomen soft, non-tender, nondistended. EXTREMITIES: No edema or joint tenderness. BACK: Nontender without deformity or crepitance. No flank tenderness. NEURO: AOx3. SKIN: 3 cm area of induration and pain in left buttock, no fluctuance, erythema or induration Initial Vital Signs Initial Vital Signs: Vital Signs Pulse Rate 117 H 05/18/22 07:21 Blood Pressure 140/77 05/18/22 07:21 Pulse Oximetry 95 05/18/22 07:21 Procedures Abscess I/D I&D #1: Site: other (left buttock) Side (if applicable): left Local Anesthetic: bupivacaine 0.25% and with epi Technique: incised with #11 blade Amount of fluid expressed (mL): 0 Course Orders Ordered: Discontinued Medications Cefazolin Sodium (Cephalexin 250 Mg Prepack) 1 bottle MISC SEEINSTR ONE Stop: 05/18/22 09:32 Last Admin: 05/18/22 09:48 Dose: Not Given Documented By: RODNEY Clindamycin HCl (Clindamycin 150 Mg Capsule) 300 mg PO NOW ONE Stop: 05/18/22 09:33 Last Admin: 05/18/22 09:56 Dose: 300 mg Documented By: ELANA Clindamycin HCl (Clindamycin 150 Mg Capsule) 1,200 mg PO NOW ONE Stop: 05/18/22 10:02 Last Admin: 05/18/22 10:04 Dose: 1,200 mg Documented By: ELANA Vital Signs Vital signs: Vital Signs - 8 hr 05/18/22 07:24 Temperature 97.7 F Pulse Rate 110 H Respiratory Rate 18 Blood Pressure 140/77 Pulse Oximetry 98 Oxygen Delivery Method Room Air Discharge Plan Departure Patient Disposition: Home Clinical Impression: Abscess of skin or subcutaneous tissue Activity Restrictions/Additional Instructions: *You have been diagnosed with [early abscess left buttock] *What to do: *Please continue to take your regular medications as directed. [ x] New medication prescriptions sent to your pharmacy: [[facility] in [place] ] [ ] New medication written as a paper prescription [ ] No new medications given *Please follow up with your primary care provider in 2-3 days, call for an appointment. Let them know you were seen in the Emergency Department and that we ask that you be seen in follow up. We will electronically transmit a record of today's note if your PCP is in our system *Return to Emergency Department if you should have any new, worsening or concerning symptoms, such as [fever greater than 101 F, shaking chills, worsening pain, persistent vomiting or other bothersome symptoms] Prescriptions: New clindamycin HCl 300 mg capsule 300 mg PO Q8H 7 Days Qty: 21 0RF No Action promethazine 25 mg tablet 25 mg PO Q6H PRN (Reason: nausea and vomiting) Qty: 30 2RF sertraline 50 mg tablet 50 mg PO DAILY Qty: 180 2RF ondansetron 4 mg tablet,disintegrating 4 mg PO Q8H PRN (Reason: nausea and vomiting) Qty: 30 0RF albuterol sulfate 1.25 mg/3 mL solution for nebulization 1.25 mg inhalation Q4-6H PRN (Reason: shortness of breath or wheezing) Qty: 75 0RF (DME) Hemphill Choice Neb Kit-Adult Misc See Rx Instructions .Route Qty: 1 0RF Rx Instructions: As directed (DME) vios nebulizer kit See Rx Instructions .Route .MEDSUPPLY Qty: 1 0RF Rx Instructions: As directed (DME) Test strips See Rx Instructions .Route .MEDSUPPLY Qty: 1 0RF Rx Instructions: Test blood sugar daily (DME) freestyle light glucometer See Rx Instructions .Route .MEDSUPPLY Qty: 1 0RF Rx Instructions: Test fasting and 2 hours after eating four times daily (DME) lancets See Rx Instructions .Route .MEDSUPPLY Qty: 270 3RF Rx Instructions: test glucose three times daily famotidine 20 mg tablet 20 mg PO BID Qty: 60 5RF (DME) frestyle lite test strips See Rx Instructions .Route .MEDSUPPLY Qty: 270 3RF Rx Instructions: test fasting in AM, and 2 hours after eating, three times daily albuterol sulfate 90 mcg/actuation aero powdr breath act w/sensor 1 inh inhalation Q4-6H PRN (Reason: shortness of breath or wheezing) Qty: 1 3RF prenat.vits,mina,[id number] Tablet 1 tab PO DAILY Referrals: Jennifer Ernandez MD [Primary Care Provider] - Visit Report Forms: Patient Portal/API
[2022-05-18 07:21] VITALS: BP 140/77; PULSE 117; O2SAT 95
[2022-05-18 07:24] VITALS: BP 140/77; PULSE 110; RESP 18; TEMP 36.5; O2SAT 98; BMI 40.3
[2022-05-18 07:30] VITALS: PULSE 112; O2SAT 96
[2022-05-18 08:00] VITALS: PULSE 104; O2SAT 96
[2022-05-18 09:47] VITALS: BP 140/70; PULSE 108; RESP 18; O2SAT 98
[2022-05-18] MEDS: CLINDAMYCIN 150 MG CAPSULE 300 MG PO (09:56)
[2022-05-18] MEDS: CLINDAMYCIN 150 MG CAPSULE 1200 MG PO (10:04)
--- NOTE | 2022-05-18 10:21 | PC.NURSE ---
Due to the holiday, pt will be unable to obtain RX for infected wound. No Clindamycin prepacks available. Pt given dose in ED and multiple doses to take home and instructed to take Q8 hrs until able to spanish moss picker her RX when the pharmacies re-open. Pharmacist Katelynn tinajero.
== END 2022-05-18 10:10 | disposition home or self-care (01) ==
PROVIDERS: Emergency Provider Emergency Medicine; PCP Family Medicine
DX: L02.31 Cutaneous abscess of buttock (principal)
CPT/HCPCS: 10060; 99283

== ENCOUNTER → 2022-05-21 14:09 | Outpatient (CLI) | payer OTHER, SELFPAY ==
--- NOTE | 2022-05-21 14:10 | DI.US.S_ITS ---
PROCEDURE: US OB FOLLOW UP INDICATIONS: cervical funneling OUTSIDE/PRIOR DATING DATA: Last menstrual period (LMP): 12/02/2019 2. LMP-based estimated date of delivery (SPENSER): 08/29/2022. First dating scan (date and location): 04/11/2022. Estimated date of delivery (SPENSER) from first dating scan: 08/19/2022. TECHNIQUE: Real-time scanning was performed of the fetus, with image documentation and biometric measurements. COMPARISON: [facility], OB FOLLOW UP, 05/12/2022, 16:00. FINDINGS: General: A single living intrauterine gestation is present. Presentation: Vertex. Placenta: Placental position is posterior , without previa. Amniotic fluid index: Stable from prior Single deepest vertical pocket is 5.8 cm. heart rate: 140 beats per minute. Maternal cervical canal: Internal cervical funneling again noted. Funneling length measures 2 cm in length and 0.7 cm in width. Closed portion of the cervix measures 1.6 cm in length. Anatomic survey: Visualized anatomy within normal limits IMPRESSION: Single live intrauterine consistent with 27 week 1 day gestation by dates Cervical internal funneling is slightly longer but less wide, currently measuring 2.0 x 0.7 cm, previously 1.5 x 1.1 cm Approved by: Andrew Jacobo M.D. on 05/21/2022 at 14:47
== END ==
PROVIDERS: PCP Family Medicine; Referring Provider Family Medicine; Visit Provider Family Medicine
DX: Z36.2 Encounter for other antenatal screening follow-up (principal); N88.8 Other specified noninflammatory disorders of cervix uteri; Z3A.27 27 weeks gestation of pregnancy
CPT/HCPCS: 76816

== ENCOUNTER → 2022-06-05 06:57 | Outpatient (CLI) | payer OTHER, SELFPAY ==
--- NOTE | 2022-06-05 06:58 | DI.US.S_ITS ---
PROCEDURE: US OB LIMITED INDICATIONS: CERVICAL FUNNELING OUTSIDE/PRIOR DATING DATA: Last menstrual period (LMP): 11/22/21 LMP-based estimated date of delivery (SPENSER): 08/29/22. First dating scan (date and location): 04/11/22. Estimated date of delivery (SPENSER) from first dating scan: 08/19/22. TECHNIQUE: Real-time scanning was performed of the fetus, with image documentation. COMPARISON: [facility], US, OB >= 14 WEEKS FETUS, 05/28/2022, 11:37. FINDINGS: A single living intrauterine gestation is present. Presentation: vertex. Placenta: Placental position is posterior, without previa. Amniotic fluid index: 13 cm, normal range is 5-24 cm. Single deepest vertical pocket is 4.6 cm. heart rate: 139 beats per minute. Maternal cervical canal: 3.2 cm long. Normal lower limit is 2.5 cm. Open funnel length 1.4cm, width 0.7 cm. Estimated gestational age from initial scan: 29 weeks 2 days IMPRESSION: Single live intrauterine . Cervical funneling as above. Dictated by: Ryann Alfredo M.D. on 06/05/2022 at 18:21 Approved by: Ryann Alfredo M.D. on 06/05/2022 at 18:24
== END ==
PROVIDERS: PCP Family Medicine; Referring Provider Family Medicine; Visit Provider Family Medicine
DX: O34.43 Maternal care for other abnormalities of cervix, third trimester (principal); Z3A.29 29 weeks gestation of pregnancy
CPT/HCPCS: 76815; 76817

== ENCOUNTER 2022-08-25 05:48 | Inpatient (IN) | payer OTHER, SELFPAY ==
--- NOTE | 2022-08-25 | PATH_ITS ---
[facility] Accession Number: [id number] No. of containers..01 Tissue . 01 Material submitted: . peritoneum - INTRA-PERITONEAL CYSTS . 01 Diagnosis: Specimen Designated Intraperitoneal Cyst, Excision: Multiloculated peritoneal inclusion cyst. See comment. MRV 08/29/2022 1309 Local . 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 Recurrences are most common after incomplete excision. Progression to malignant mesothelioma has been reported in exceptionally rare cases. Clinical and radiographic correlation is advised with appropriate clinical followup. Selected slides from this case has also been reviewed by Dr. Yrn Lopez who concurs with the diagnosis. . 01 Electronically signed: . Jessica Johnson MD, Pathologist NPI- [id number] . 01 Gross description: . The specimen is received in formalin labeled with the patient's name, , and intraperitoneal cysts, and consists of two distinct groups of multiple cystic structures all aggregating to 5.7 x 5.5 x 1.6 cm. One distinct group of cysts is inked blue while the other group is inked green. The individual cystic structures range from 0.6 to 2.7 cm in greatest dimension with smooth ha and have contents ranging from clear and serous to cloudy and mucoid. The ha are less than 0.1 cm thick and smooth with no excrescences grossly identified. The specimen is submitted entirely in cassettes A1-A8. ([id number]) /MRV 08/27/2022 1740 Local . 01 Microscopic: . Microscopic evaluation is remarkable for a collection of cystic structures that appear to be lined by flattened bland appearing cells, consistent with mesothelial cells. Mitotic activity, overt cytologic atypia and necrosis is not identified. The cyst wall is fibrous with areas of degenerative and reactive changes with hyalinization, fibrosis and inflammation. There is no infiltration of underlying tissues. . 01 Pathologist provided ICD-10: K66.8 . 01 CPT . 682126 Specimen Comment: A courtesy copy of this report has been sent to [phone] Performed at: 01 [facility] [address] [place] [address] [address] [facility], [place], [place] [id number] MD Oscar Alston MD Phone: [phone]
[2022-08-25 06:26] VITALS: BP 129/74
[2022-08-25 06:54] LABS: Add Manual Diff / Slide Review NO; Basophils Absolute Auto 100 /uL (0-100); Basophils Percent Auto 0.6 % (0-2); Eosinophils Absolute Auto 100 /uL (0-450); Eosinophils Percent Auto 1.1 % (2-4); Hemoglobin 10.4 g/dL (12.0-16.0); Lymphocytes Absolute Auto 2000 /uL (1100-4500); Lymphocytes Percent Auto 21.5 % (25-40); Mean Corpuscular HGB Conc 33.5 % (30-36); Mean Corpuscular Hemoglobin 26.7 PG (26-34); Mean Corpuscular Volume 79.8 fL (80-100); Monocytes Absolute Auto 500 /uL (0-900); Monocytes Percent Auto 5.3 % (3-14); Neutrophils Absolute Auto 6800 /uL (1500-7000); Neutrophils Percent Auto 71.5 % (50-75); Platelet Count 202 X10^3/uL (150-400); Red Blood Cell Count 3.89 X10^6/uL (4.0-5.2); Red Cell Distribution Width 15.6 % (11.6-14.8); White Blood Cell Count 9.5 X10^3/uL (4.5-11.0)
--- NOTE | 2022-08-25 07:05 | PM.OBHP.IH.1 ---
OB HPI Date/Time Date of admission: 08/25/22 Date Patient Seen: 08/25/22 History of Present Condition Chief complaint: Primary SPENSER Calculator Estimated Delivery Date Method Current WG Current Estimate 08/29/22 LMP (Certain) 39w 3d Other Estimates 09/02/22 Ultrasound #1 38w 6d Estimated Gestational Age (weeks): 39w3d : 2 Para: 0 Narrative: 27yo at 39w3d here for primary for breech presentation. She denies any vaginal bleeding, LOF, contractions. She has been having only [place] contractions. She is feeling her baby move regularly. The pts was complicated by LGA on anatomy scan, normalized on repeat scans. She failed her glucola, but had normal home glucose monitoring. She had cervical funneling found at 26wks, however this remained stable and she never had significant cervical shortening. She has anxiety from prior to her , stable on Sertraline 100mg daily. care: good care, initiated at week # (8) and pounds weight gain (33) Dating criteria OB: LMP confirmed by 1st trimester US Ultrasounds: normal 1st trimester US, normal mid trimester US and abnormal US findings (LGA on anatomy u/s, normalized on repeat scans) Abnormal ultrasound findings: Cervical funneling found at 26 wks, remained stable without significant cervical shortening. Obstetrical complications: other Medical complications OB: psychiatric (Anxiety) Indications Operative indications ( section): breech presentation Preadmission Labs Last OB Lab Results: Blood Type O Positive 08/25/22 06:40 Antibody Screen Negative 08/25/22 06:40 Hematocrit 31.0 % (36-46) L 08/25/22 06:40 Hemoglobin 10.4 g/dL (12.0-16.0) L 08/25/22 06:40 Hepatitis B Surface Antigen Negative s/c (NEGATIVE) 03/19/22 10:02 Hepatitis C Antibody Negative s/c (NEGATIVE) 03/19/22 10:02 Rubella Antibody 4.0 IU/mL (>15) L 03/19/22 10:02 Varicella-Zoster IgG Antibody 333 index (Immune >165) 03/19/22 10:02 Glucose 1 Hour 162 mg/dL (76-139) H 03/19/22 10:02 Group B Streptococcus (PCR) Pos for grp b strep H 05/12/22 18:00 -: Urine: negative External Labs -: Urine: negative Prior (ies) Past Pregnancies Del. Date GA/Weeks Labor Lgth Wt Sex Route Outcome Anesthesia Place Delv Breastfeed Preg Comp Name 12/06/20 7 spontaneous Evaluation Evaluation Baseline heart rate: 135 Variability: Moderate (11-25) monitor accelerations: Present Monitor Decelerations: Absent Contraction Frequency (minutes): 8 Category of Tracing: Reactive PFSH Medical History Anxiety Asthma Back pain Bronchitis Depression Frequent headaches Heat rash Hormone imbalance Incomplete miscarriage Obesity Tongue tied Surgical History H/O tooth extraction Family History Father Drug addict Acute alcohol abuse Family estrangement Nephrotic syndrome Mother PCOS (polycystic ovarian syndrome) Depression Anxiety Grandfather Family estrangement Grandmother Family estrangement Grandfather History of prediabetes Obesity Grandmother Gestational diabetes Anemia Seizures Depression Anxiety Sister Anemia induced hypertension Sister No problems noted. Brother No problems noted. Brother No problems noted. 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/confucianism: Confucianist special angelica needs: No travel history: recent (domestic only) seatbelt use: always water heater temp set < 120 deg: Yes working smoke detector in home: Yes fire extinguisher in home: Yes carbon monox detector in home: Yes firearms in home: Yes firearms unloaded and locked: Yes do you feel safe at home: Yes Smoking Status: Never smoker second hand exposure: No alcohol intake: former (only occasionally when not ) substance use type: does not use during the past year weight has: remained stable well-balanced diet: daily or most days daily servings fruits/ve-4 caffeine: Yes Type(s) of exercise: walking, bicycling (stationary bike) and weight lifting frequency: 3-4 times per week Meds Home Medications and Allergies Home Medications Medication Instructions Recorded Confirmed Type prenat.vits,mina,uge-dozv-bkjqq 1 tab PO DAILY 12/03/20 08/25/22 History albuterol sulfate 1.25 mg/3 mL 1.25 mg (3 mL) inhalation Q4-6H 02/07/22 08/25/22 Rx solution for nebulization PRN shortness of breath or wheezing #75 mL nebulizer accessories ([place] #1 ea 02/09/22 08/25/22 Rx Choice Nebulizer Kit-Adult) vios nebulizer kit #1 ea 02/10/22 08/25/22 Rx famotidine 20 mg tablet 20 mg PO BID #60 tabs 04/01/22 08/25/22 Rx albuterol sulfate 90 mcg/actuation 1 inh inhalation Q4-6H PRN 08/04/22 08/25/22 Rx breath activated powder shortness of breath or wheezing #1 inhaler,sensor ea Allergies Allergy/AdvReac Type Severity Reaction Status Date / Time No Known Drug Allergies Allergy Verified 08/25/22 06:31 OB Exam Narrative Exam Narrative: Gen: NAD, sitting comfortably in bed, appears well CV: RRR, no murmurs Resp: clear to auscultation bilaterally Abd: soft, nontender, gravid Ext: no edema Objective Labs 08/25/22 06:40 Labs: Laboratory Results - last 24 hr 08/25/22 06:40 WBC 9.5 RBC 3.89 L Hgb 10.4 L Hct 31.0 L MCV 79.8 L MCH 26.7 MCHC 33.5 RDW 15.6 H Plt Count 202 Neut % (Auto) 71.5 Lymph % (Auto) 21.5 L Greene % (Auto) 5.3 Eos % (Auto) 1.1 L Baso % (Auto) 0.6 Neut # (Auto) 6800 Lymph # (Auto) 2000 [place] # (Auto) 500 Eos # (Auto) 100 Baso # (Auto) 100 Assessment and Plan Assessment and Plan Assessment and Plan narrative: 27yo at 39w3d here for primary for breech presentation. Pt declined version attempt. GBS positive, Rh positive. complicated by cervical funneling at 26wks, remained stable without cervical shortening. Pt with failed glucola, however home glucose monitoring in normal range - no GDM. Stable on Sertraline for anxiety. Discussed risks vs benefits of . Risks including but not limited to bleeding/hemorrhage, infection, injury to other organs such as bowel/bladder, injury to fetus. The pt agrees to blood transfusion if medically necessary. Consent was previously signed and reviewed. Pt will receive 3g Ancef prior to surgery based on pts weight. SCDs to be placed.
--- NOTE | 2022-08-25 07:46 | PM.PREOP ---
Pre-operative Note Interval Note History & Physical reviewed/Exam performed by Physician: Yes Changes to H&P: No
[2022-08-25] MEDS: CEFAZOLIN VIAL 3 GM in SODIUM CHLORIDE 0.9% 100 ML IV (07:50)
[2022-08-25] MEDS: LACTATED RINGERS 1,000 ML 42 ML IV ×3 (08:00→16:20)
[2022-08-25 08:05] LABS: Alanine Aminotransferase 13 IU/L (<35); Albumin 3.4 g/dL (3.5-5.0); Alkaline Phosphatase 136 U/L (38-126); Aspartate Aminotransferase 16 IU/L (14-36); BUN Creatinine Ratio 11.8 (6-22); Bilirubin Total 0.3 mg/dL (0.2-1.3); Blood Urea Nitrogen 6 mg/dL (7-17); Calcium 9.4 mg/dL (8.4-10.2); Carbon Dioxide 23 mmol/L (22-32); Chloride 103 mmol/L (98-107); Estimated Glomerular Filt Rate > 60 mL/min (>60); Globulin 3.4 g/dL (1.7-4.1); Glucose 86 mg/dL (70-100); HEMOLYSIS < 15 (0-50); Potassium 3.5 mmol/L (3.4-5.1); Sodium 133 mmol/L (137-145); Total Protein 6.8 g/dL (6.3-8.2)
--- NOTE | 2022-08-25 08:52 | SUR.OPER ---
Supine on Padded OR bed, head on pillow, safety belt at thigh, arms secured on padded arm boards at <90 degrees abduction. Bump under right buttock. Legs uncrossed, gel pad to heels, tape over blanket to lower legs. Gel pad placed between urinary catheter tubing and patients posterior right leg.
--- NOTE | 2022-08-25 08:53 | SUR.OPER ---
Viable baby girl delivered at 0839. Placenta delivered. Placenta and cord blood tubes X2 given to L&D RN.
[2022-08-25 09:39] VITALS: BP 154/79; PULSE 85; RESP 18; TEMP 36.3; O2SAT 100
[2022-08-25 09:44] VITALS: BP 141/71; PULSE 83; RESP 13; O2SAT 99
[2022-08-25 09:48] VITALS: BP 140/89; PULSE 87; RESP 18; O2SAT 99
[2022-08-25] MEDS: KETOROLAC 30 MG/ML VIAL IV ×3 (09:50→22:22)
[2022-08-25 09:54] VITALS: BP 144/85; PULSE 74; RESP 12; TEMP 36.2; O2SAT 99
[2022-08-25] MEDS: OXYCODONE IR 5 MG TABLET PO (10:04)
--- NOTE | 2022-08-25 10:30 | SUR.PHASEI ---
Patient transferred to the center with CORA Whitten. VS stable. IV patent. Condition stable.
--- NOTE | 2022-08-25 11:14 | P.OP_ITS ---
Operative Date/Time/Diagnoses Date of procedure: 08/25/22 Time of procedure: 07:45 Pre-op diagnosis: 39w3d gestation GBS positive Rh positive Breech presentation Post-op diagnosis: other (Intraperitoneal cysts with calcifications) Procedure & Clinicians Procedure: Primary Same procedure as scheduled: Yes Indications: Breech presentation Surgeon: Jennifer Ernandez Click Yes if Unassisted: No Superintendent Commissary: Mary Orellana Anesthesia Type: Spinal Operative Notes Findings: Normal uterus, ovaries, and tubes. Many intraperitoneal cysts, some adherent to the omentum and periteneum. Omentum with some small scattered calcifications. Cysts adherent to periteneum with dense adhesion band and some calcifications as well. Closure Type: primary Specimen(s): other (intraperitoneal cysts) Intraoperative meds administered: Pitocin Applied: Catheter Estimated Blood Loss (mL): 400 Blood products transfused: none Procedure in detail: OPERATIVE COURSE: The patient was taken to the operating room where spinal anesthesia was placed. She was then prepared and draped in the normal sterile fashion in the dorsal supine position with a leftward tilt. Anesthesia was tested and found to be adequate. A Pfannensteil skin incision was then made with the scalpel and carried through to the underlying layer of fascia with the scalpel. The fascia was incised in the midline and the incision extended laterally with the Najera scissors. The superior aspect of the fascial incision was then grasped with Margaret clamps, elevated with the help of the rn medical surgical, and the underl megan rectus muscles dissected off bluntly and sharply where needed. Attention was then turned to the inferior aspect of the incision which, in a similar fashion, was grasped, tented up with Margaret clamps, and the rectus muscle dissected off bluntly and sharply with Najera scissors. The rectus muscles were then in the midline, and the peritoneum was identified and entered bluntly. The peritoneal incision was then extended with good visualization of the bladder. Retraction was provided by the rn medical surgical. The bladder blade was then inserted and the vesicouterine peritoneum identified, grasped with pick-ups and entered sharply with the Metzenbaum scissors. The incision was then extended laterally and the bladder flap created digitally. The bladder blade was then reinserted and the lower uterine segment incised in a transverse fashion with the scalpel, with the rn medical surgical providing suction. The uterine incision was then extended superolaterally by pulling sup erolaterally on both sides. Membranes were ruptured and fluid was clear. The bladder blade was removed and the 's buttocks and legs were delivered with gentle fundal pressure and traction at the hips. A wet lap was then wrapped around the infant's body. The anterior arm was delivered. The infant was then rotated, and the alternate arm delivered from anterior position. The head was then delivered by rotating the baby onto the patient's abdomen. The nose and mouth were suctioned with bulb suction and the cord was clamped and cut after 1 minute. The infant was handed off to the waiting nursing staff. Cord blood was collected for Rh status. The placenta was then delivered with gentle cord traction. The uterus was then exteriorized and cleared of all clots and debris. The uterine incision was repaired with O-Vicryl in a running, locked fashion. A second layer of the same suture was used for imbrication. Two [id number] sutures with O-Vicryl were used on the right side of the incision for excellent hemostasis. The uterus was returned to the abdomen. The gutters were cleared of all clots. Hysterotomy was investigated and found to be hemostatic. The bladder flap was repaired with 2-O Chromic. The pt was noted to have multiple chains of cysts within her peritoneum, some adherent to the peritoneum and omentum. There were noted to be dense adhesions surrounding the cysts on the peritoneum with some calcifications. Calcifications were also noted within the omentum. A cluster of loose cysts as well as an area adherent to the omentum were removed with cautery and sent to pathology. The peritoneum was closed with 3-O Vicryl. The fascia was reapproximated with O-Vicryl in a running fashion. The subcutaneous tissue was reapproximated with 3-O Vicryl. The skin was closed with O-Vicryl. The rn medical surgical helped with retraction during closures. SPONGE AND NEEDLE COUNTS: Correct x3. DRESSING: Aquacel ANTICOAGULATION: SCDs applied prior to Surgery Preop antibiotics given (see MAR). The patient was taken to recovery room having tolerated procedure well. Baby 1: Infant Gender: Female Presentation: breech Placental Delivery Description: Spontaneous Cord Vessel Description: 3 Vessels score (1 min): 9 score (5 min): 9 weight: 9 lb 13.322 oz Post-operative Condition: stable Disposition: PACU Aftercare: routine postop (plan for CT pending pathology results)
[2022-08-25] MEDS: ACETAMINOPHEN 325 MG TABLET 650 MG PO (16:23)
[2022-08-25 18:05] LABS: Creatinine Urine Random 305.1 mg/dL; Protein (Total) Urine Random 13 mg/dL (0-12); Protein Creatinine Ratio Urine 0.04 GRAM/24H
[2022-08-25] MEDS: diphenhydrAMINE 50 MG/ML VIAL 25 MG IV (18:30)
[2022-08-25] MEDS: FAMOTIDINE 20 MG TABLET PO (22:22)
[2022-08-26] MEDS: ACETAMINOPHEN 325 MG TABLET 650 MG PO ×4 (00:22→21:22)
[2022-08-26] MEDS: KETOROLAC 30 MG/ML VIAL IV (04:26)
[2022-08-26] MEDS: ONDANSETRON 4 MG/2 ML INJ IV (05:05)
[2022-08-26 06:41] LABS: Add Manual Diff / Slide Review NO; Basophils Absolute Auto 0 /uL (0-100); Basophils Percent Auto 0.4 % (0-2); Eosinophils Absolute Auto 100 /uL (0-450); Eosinophils Percent Auto 0.9 % (2-4); Hematocrit 25.2 % (36-46); Hemoglobin 8.6 g/dL (12.0-16.0); Lymphocytes Absolute Auto 1400 /uL (1100-4500); Lymphocytes Percent Auto 15.3 % (25-40); Mean Corpuscular HGB Conc 33.9 % (30-36); Mean Corpuscular Hemoglobin 27.4 PG (26-34); Mean Corpuscular Volume 80.7 fL (80-100); Monocytes Absolute Auto 500 /uL (0-900); Monocytes Percent Auto 5.1 % (3-14); Neutrophils Absolute Auto 7100 /uL (1500-7000); Neutrophils Percent Auto 78.3 % (50-75); Platelet Count 164 X10^3/uL (150-400); Red Blood Cell Count 3.13 X10^6/uL (4.0-5.2); Red Cell Distribution Width 15.8 % (11.6-14.8); White Blood Cell Count 9.1 X10^3/uL (4.5-11.0)
[2022-08-26] MEDS: FERROUS SULFATE 325 MG TABLET PO (08:12)
[2022-08-26] MEDS: DOCUSATE 100 MG CAPSULE PO (08:12)
--- NOTE | 2022-08-26 10:30 | PM.OBPN.1 ---
Subjective - OB Subjective Patient comments: no complaints and pain well controlled [place] baby status: doing well and nursing well feeding status: exclusively breast feeding Narrative: Patient reports that she is doing well. Her lochia is decreasing appropriately. She has voided successfully. She is ambulating but has not yet passed flatus. She is with improved latch after frenotomy. Exam Vital Signs (past 8 hours): Oxygen Delivery Method Room Air Resp Auscultation: clear to auscultation bilaterally Cardio Rate: regular rate Rhythm: regular rhythm Heart Sounds: S1 normal, S2 normal and no murmurs GI Inspection: non-distended, incision (dressing c/d/i) and obesity Palpation: soft, No guarding and tender (appropriately tender) Auscultation: normal bowel sounds Other: fundus firm and below the umbilicus Extrem Right upper extremity: no edema Objective Labs 08/26/22 06:21 08/25/22 06:40 Labs: Laboratory Results - last 24 hr 08/25/22 08/26/22 16:15 06:21 WBC 9.1 RBC 3.13 L Hgb 8.6 L Hct 25.2 L MCV 80.7 MCH 27.4 MCHC 33.9 RDW 15.8 H Plt Count 164 Neut % (Auto) 78.3 H Lymph % (Auto) 15.3 L Alexander % (Auto) 5.1 Eos % (Auto) 0.9 L Baso % (Auto) 0.4 Neut # (Auto) 7100 H Lymph # (Auto) 1400 Alexander # (Auto) 500 Eos # (Auto) 100 Baso # (Auto) 0 U Random Total Protein 13 H Urine Creatinine 305.1 Protein/Creatinin Ratio 0.04 Assessment & Plan Plan Comments: Pt is a 27yo POD#1 s/p primary for breech presentation without complications. Pt doing well. - Normal care - support - Encourage ambulation today Time Spent With Patient Time: Total time spent is greater than 50% in coordination of care (as documented) at patient's floor/unit and/or counseling patient: Time with patient: 15-24 minutes
[2022-08-26] MEDS: IBUPROFEN 600 MG TABLET PO ×2 (11:28→18:29)
[2022-08-26] MEDS: OXYCODONE IR 5 MG TABLET PO (19:32)
[2022-08-26] MEDS: FAMOTIDINE 20 MG TABLET PO (19:35)
[2022-08-26] MEDS: LANOLIN OINT 7 GM 1 APPLIC TOP (19:38)
[2022-08-27] MEDS: IBUPROFEN 600 MG TABLET PO ×2 (00:25→06:22)
[2022-08-27] MEDS: ACETAMINOPHEN 325 MG TABLET 650 MG PO ×2 (03:33→09:04)
[2022-08-27] MEDS: DOCUSATE 100 MG CAPSULE PO (09:03)
[2022-08-27] MEDS: FERROUS SULFATE 325 MG TABLET PO (09:04)
[2022-08-27] MEDS: PRENATAL VIT,CALC/IRON/FOLIC 1 TABLET 1 TAB PO (09:04)
[2022-08-27 10:22] VITALS: BP 120/87; PULSE 95; RESP 18; TEMP 36.6
[2022-08-27] MEDS: MEASLES,MUMPS,RUBELLA VACC/PF 0.5 ML VIAL SUBCUT (11:42)
--- NOTE | 2022-08-31 08:31 | PM.OBDS.1 ---
Discharge Providers Provider Date of admission: 08/25/22 05:48 Discharge Date: 08/27/22 Primary care physician: Jennifer Ernandez MD Consults: 08/25/22 10:29 Consult to It Business Process Architect Routine Comment: Discharge provider: Mary Orellana MD Summary Hospital Course Date Patient Seen: 08/27/22 Time Patient Seen: 10:00 Diagnoses: 39-3/7 weeks gestation Breech presentation Primary low-transverse section Hospital Course: Patient is a 27-year-old 2 para 1 who presented on August 25, 2022 for a scheduled primary section due to persistent breech presentation. She underwent this procedure without complication. Her postoperative course was unremarkable. She was discharged home on August 25, 2022. She was tolerating a diet. No nausea or vomiting. Her pain was well controlled. She was ambulating independently. She was voiding without the catheter. was going well. Peripartum Data Infant Delivery Method: Section Procedures: Spinal anesthesia Primary low-transverse section complications: none Basom 1: Gender: Female Disposition of : home Status at Discharge Cognitive/behavioral status at discharge: oriented Functional status at discharge: independent ambulation Overall status at discharge: patient is progressing back to baseline Time Spent with Patient Time attestation: Total time spent providing and/or coordinating discharge services: Time spent: Less than 30 minutes Objective Labs 08/26/22 06:21 08/25/22 06:40 Exam Vital Signs (past 8 hours): Oxygen Delivery Method Room Air Narrative Exam Narrative: Generally: Patient is sitting up in bed, holding , no acute distress Lungs: Clear to auscultation bilaterally Cardiovascular: Regular rate and rhythm Fundus: Firm at U -1 Incision: Clean dry and intact with Aquacel dressing Extremities: 1+ edema, negative Homans Discharge Plan Discharge Plan Patient Disposition: Home Provider Discharge Comment: Call with fever, chills, redness or drainage around the incision, or bleeding vaginally more than a pad in an hour Call with 1 leg swollen more than the other, redness, warmth, or tenderness in the calf Ibuprofen 600 mg every 6 hours as needed Tylenol 650 mg every 6 hours as needed Continue vitamins Push oral fluid Discharge orders & Medications Prescriptions: Continued albuterol sulfate 90 mcg/actuation aero powdr breath act w/sensor 1 inh inhalation Q4-6H PRN (Reason: shortness of breath or wheezing) Qty: 1 3RF albuterol sulfate 1.25 mg/3 mL solution for nebulization 1.25 mg inhalation Q4-6H PRN (Reason: shortness of breath or wheezing) Qty: 75 0RF (DME) [place] Choice Neb Kit-Adult Misc See Rx Instructions .Route Qty: 1 0RF Rx Instructions: As directed (DME) vios nebulizer kit See Rx Instructions .Route .MEDSUPPLY Qty: 1 0RF Rx Instructions: As directed famotidine 20 mg tablet 20 mg PO BID Qty: 60 5RF prenat.vits,mina,[id number]-[id number]-nmytl Tablet 1 tab PO DAILY Follow up/Referrals: [Other] - 09/03/22 10:00 am Jennifer Ernandez MD [Primary Care Provider] - (1 week Incision check: Thursday, September 01 @ 3:45pm 6 week postprtum appt: October 01 @ 2:30pm) Diet/Activity/Treatments Diet: Regular Activity: No heavy lifting Nothing in the vagina for 6 weeks Skin/Wound/Dressing Care Report to your healthcare provider any signs of infection, such as:: chills, fever, increased pain and unusual drainage Dressing: Do not remove Visit Report/Discharge Packet Instructions: DI for Stand Alone Forms: Discharge: Care, Patient Portal/API, Stroke Signs & Symptoms Discharge Data Primary Care Provider: Jennifer Ernandez Discharges patient from system. Discharge Date/Time: 08/27/22 11:57
== END 2022-08-27 11:57 | disposition home or self-care (01) | DRG 788 ==
PROVIDERS: Admitting Provider Family Medicine; PCP Family Medicine; Referring Provider Family Medicine; Visit Provider Family Medicine
PROC: 10D00Z1 Extraction of Products of Conception, Low, Open Approach (ICD-10-PCS; CPT 59514; principal; 2022-08-25 07:45)
DX: O64.1XX0 Obstructed labor due to breech presentation, not applicable or unspecified (principal); Z3A.39 39 weeks gestation of pregnancy; Z37.0 Single live birth; O99.62 Diseases of the digestive system complicating childbirth; K66.0 Peritoneal adhesions (postprocedural) (postinfection); O34.83 Maternal care for other abnormalities of pelvic organs, third trimester; K66.8 Other specified disorders of peritoneum; O99.824 Streptococcus B carrier state complicating childbirth; O99.344 Other mental disorders complicating childbirth; F41.9 Anxiety disorder, unspecified
CPT/HCPCS: 59050; 59510; 59514; 76815; 80053; 82570; 84156; 85025; 86850; 86900; 86901; A9270; J0690; J1200; J1885; J2274; J2405; J2590; J2704